=== PATIENT | male | born 1990 | race Two or more races ===

== ENCOUNTER 2017-06-03 07:59 | Outpatient (CLI) | payer OTHER | END 2017-06-03 08:00 | disposition home or self-care (01) | LOC: LAB.WCP 07:59 | PROVIDERS: ATTEND Internal Medicine Rheumatology | DX: R74.0 Nonspecific elevation of levels of transaminase and lactic acid dehydrogenase [LDH] (principal) | CPT/HCPCS: 36415; 84450; 84460 ==